=== PATIENT | female | born 1945 | race Caucasian/White ===

== ENCOUNTER 2018-02-08 19:00 | Emergency (ER) | payer OTHER ==
[~2018-02-08] VITALS: Ht 175.3 cm; Wt 88.1 kg
[~2018-02-08 19:00] MED LIST: ACCUPRIL20 MG PO; ADVAIR 250/501 DISK IH; AMLODIPINE BESYL5 MG PO; ASCORBIC ACID500 M3 PO; AZITHROMYCIN250 MG PO; BAYER CHILDREN'81 M1 PO; CENTURY ULTIMA1 EAC3 PO; CLONAZEPAM0.5 MG PO; COSOPT 0.5200 DROP/1 BOTH EYES; GABAPENTIN300 MG PO; LEXAPRO20 MG PO; METOPROLOL TART50 MG PO; MOBIC15 MG PO; PROAIR HFA8.5 GM IH; PROTONIX40 MG PO; REFRESH TEARS15 ML BOTH EYES; ROXICODONE5 MG PO; SIMVASTATIN10 MG PO; SINGULAIR10 MG PO; SYMBICORT60 INHALAT IH; VITAMIN D310000 UNI1 PO; VITAMIN D34000 UNIT PO; VOLTAREN75 MG PO
[2018-02-08 19:31] LABS: HEMATOCRIT 44.2 % (36.0-46.0); HEMOGLOBIN 15.3 G/DL (11.9-15.5); MCHC 34.6 G/DL (30.0-36.0); MCV 89.5 FL (83-99); PLATELET COUNT 380 K/uL (156-360); RBC DIS.WIDTH-CV 12.9 % (11.8-14.6); RBC DIS.WIDTH-SD 41.9 % (39-53); RED BLOOD COUNT 4.94 M/uL (3.80-5.20); WHITE BLOOD COUNT 17.3 K/uL (4.1-10.2)
[2018-02-08 19:40] LABS: CHLORIDE 109 mEq/L (99-109); POTASSIUM 3.8 mEq/L (3.7-5.4); SODIUM 141 mEq/L (136-147)
[2018-02-08 19:41] LABS: GLUCOSE 138 mg/dL (70-99)
[2018-02-08 19:45] LABS: CREATININE 0.9 mg/dL (0.6-1.3); GFR ESTIMATE (CALCULATED) > 59 mL/min/
[2018-02-08 19:46] LABS: UREA NITROGEN (BUN) 23 mg/dL (9-23)
[2018-02-08 19:53] LABS: TROP-I INTERPRETATION NEGATIVE; TROPONIN-I 0.01 ng/mL (0.0-0.30)
[2018-02-08 22:49] LABS: APPEARANCE SL.HAZY ((CLEAR)); BILIRUBIN NEGATIVE; BLOOD NEGATIVE; COLOR YELLOW ((YELLOW)); GLUCOSE (STRIP) NEGATIVE; KETONES 5; LEUKOCYTES MODERATE; NITRITE NEGATIVE; PROTEIN (STRIP) NEGATIVE; SPECIFIC GRAVITY 1.018 (1.000-1.030)
[2018-02-08 22:51] LABS: BACTERIA NONE SEEN /HPF; EPITHELIAL CELLS RARE /HPF; MUCUS TRACE /LPF; RED BLOOD CELLS 0-5 /HPF (0-5); UCUL ADDED? YES; WHITE BLOOD CELLS 20-30 /HPF (0-5)
[2018-02-08] MEDS ORDERED: KEFLEX500 MG PO (22:55)
[2018-02-08] MEDS ORDERED: SKELAXIN800 MG PO (23:23)
[2018-02-08] MEDS ORDERED: ZOFRAN ODT4 MG PO (23:23)
[2018-02-09 00:03] VITALS: BP 186/80
== END 2018-02-09 00:03 | disposition home or self-care (01) ==
LOC: EME 19:00
PROVIDERS: Physician Assistant
DX: T17.228A Food in pharynx causing other injury, initial encounter (principal); X58.XXXA Exposure to other specified factors, initial encounter; J45.909 Unspecified asthma, uncomplicated; I10 Essential (primary) hypertension; E78.5 Hyperlipidemia, unspecified; K21.9 Gastro-esophageal reflux disease without esophagitis; F32.9 Major depressive disorder, single episode, unspecified; Z90.710 Acquired absence of both cervix and uterus; Z88.0 Allergy status to penicillin; Z88.5 Allergy status to narcotic agent; Z88.6 Allergy status to analgesic agent; Z88.8 Allergy status to other drugs, medicaments and biological substances; Z91.041 Radiographic dye allergy status
CPT/HCPCS: 71046; 80048; 81003; 84484; 85027; 87086; 93005; 99281; 99284

== ENCOUNTER → 2018-03-18 | Outpatient (CLI) | payer OTHER ==
[~2018-03-18] VITALS: Ht 175.3 cm; Wt 86.6 kg
[~2018-03-18] MED LIST changes: +ADULT ASPIRIN81 MG PO; +KEFLEX500 MG PO; +MULTI-VITAMIN1 EAC4 PO; +SKELAXIN800 MG PO; +ZOFRAN ODT4 MG PO
== END | disposition home or self-care (01) ==
LOC: AMB 07:59
DX: B37.81 Candidal esophagitis (principal); K22.2 Esophageal obstruction; K44.9 Diaphragmatic hernia without obstruction or gangrene; K31.7 Polyp of stomach and duodenum; J45.909 Unspecified asthma, uncomplicated; I10 Essential (primary) hypertension; R94.31 Abnormal electrocardiogram [ECG] [EKG]; K21.0 Gastro-esophageal reflux disease with esophagitis; Z79.82 Long term (current) use of aspirin; Z88.0 Allergy status to penicillin; Z88.8 Allergy status to other drugs, medicaments and biological substances
CPT/HCPCS: 88108; 88305; 88312